=== PATIENT | female | born 1980 | race Caucasian/White ===

== ENCOUNTER 2023-03-11 22:37 | Inpatient (IN) | payer BC ==
[2023-03-12] MEDS ORDERED: VANCOMYCIN IV PER PHARMACY 1 EACH MISC MISCELLANE PRN (00:08)
[2023-03-12] MEDS ORDERED: NALOXONE 0.4 MG/ML 1 ML VIAL IV PRN (00:09)
--- NOTE | 2023-03-12 00:14 | ED ---
General Adult HPI - General Chief complaint: Skin/Abscess/Foreign Body Stated complaint: Cellulitis Infection Time Seen by Provider: 03/11/23 23:39 Source: patient Mode of arrival: ambulatory Limitations: no limitations - History of Present Illness Initial comments: Dictation was produced using [employer] dictation software. please excuse any grammatical, word or spelling errors. Chief Complaint: 43-year-old female presents emergency Department with left lower extremity cellulitis History of Present Illness: Is a 43-year-old female she has extensive history of lower extremity cellulitis. She has been taking cephalosporins. She is on day 3 of her symptoms are worsening. Patient has been hospitalized multiple occasions for cellulitis. Most recently she was admitted and placed on vancomycin and linezolid. Patient complaining of chills. She feels like her symptoms are getting worse. She is visiting from out of town. She is from [facility]. The ROS documented in this emergency department record has been reviewed and confirmed by me. Those systems with pertinent positive or negative responses have been documented in the HPI. All other systems are other negative and/or noncontributory. - Related Data Allergies Allergy/AdvReac Type Severity Reaction Status Date / Time No Known Allergies Allergy Verified 03/11/23 22:46 Review of Systems ROS Statement: Those systems with pertinent positive or pertinent negative responses have been documented in the HPI. ROS Other: All systems not noted in ROS Statement are negative. Past Medical History Past Medical History: Asthma History of Any Multi-Drug Resistant Organisms: None Reported Past Surgical History: Adenoidectomy, Section, Cholecystectomy, Orthopedic Surgery, Tonsillectomy Past Psychological History: Anxiety, Depression Smoking Status: Never smoker Past Alcohol Use History: None Reported Past Drug Use History: None Reported General Exam - General Exam Comments Initial Comments: PHYSICAL EXAM: General Impression: Alert and oriented x3, not in acute distress HEENT: Normocephalic atraumatic, extra-ocular movements intact, pupils equal and reactive to light bilaterally, mucous membranes moist. Cardiovascular: Heart regular rate and rhythm Chest: Able to complete full sentences, no retractions, no tachypnea Abdomen: abdomen soft, non-tender, non-distended, no organomegaly Musculoskeletal: Pulses present and equal in all extremities, no peripheral edema Motor: no focal deficits noted Neurological: CN II-XII grossly intact, no focal motor or sensory deficits noted Skin: Cellulitic changes to the left lower extremity, circumferential, erythematous and tenderness to palpation Psych: Normal affect and mood Limitations: no limitations Course Vital Signs 03/11/23 22:43 Temperature 98.1 F Pulse Rate 96 Respiratory 16 Rate Blood Pressure 129/88 O2 Sat by Pulse 96 Oximetry Medical Decision Making - Medical Decision Making Was pt. sent in by a medical professional or institution (, TRAVIS, CRUTCHING CONTRACTOR, urgent care, hospital, or halfway...) When possible be specific @ -No Did you speak to anyone other than the patient for history (EMS, parent, family, police, friend...)? What history was obtained from this source @ -No Did you review nursing and triage notes (agree or disagree)? Why? @ -I reviewed and agree with nursing and triage notes Were old charts reviewed (outside hosp., previous admission, EMS record, old EKG, old radiological studies, urgent care reports/EKG's, halfway records)? Report findings @ -No old charts were reviewed Differential Diagnosis (chest pain, altered mental status, abdominal pain women, abdominal pain men, vaginal bleeding, musculoskeletal, weakness, fever, dyspnea, syncope, headache, dizziness, GI bleed, back pain, seizure, CVA, palpatations, mental health)? @ -not applicable EKG interpreted by me (3pts min.). @ -None done X-rays interpreted by me (1pt min.). @ -None done CT interpreted by me (1pt min.). @ -None done U/S interpreted by me (1pt. min.). @ -None done What testing was considered but not performed or refused? (CT, X-rays, U/S, labs)? Why? @ -None What meds were considered but not given or refused? Why? @ -None Did you discuss the management of the patient with other professionals (professionals i.e. , TRAVIS, CRUTCHING CONTRACTOR, lab, RT, psych nurse, social staff worker, frame and scrap crusher, teacher, contracts officer, showcase maker)? Give summary @ -No Was smoking cessation discussed for >3mins.? @ -No Was critical care preformed (if so, how long)? @ -No Were there social determinants of health that impacted care today? How? (Homelessness, low income, unemployed, alcoholism, drug addiction, tra nsportation, low edu. Level, literacy, decrease access to med. care, long term, rehab)? @ -No Was there de-escalation of care discussed even if they declined (Discuss DNR or withdrawal of care, Hospice)? DNR status @ -No What co-morbidities impacted this encounter? (DM, HTN, Smoking, COPD, CAD, Cancer, CVA, ARF, Chemo, Hep., AIDS, mental health diagnosis, sleep apnea, morbid obesity)? @ -None Was patient admitted / discharged? Hospital course, mention meds given and route, prescriptions, significant lab abnormalities, going to OR and other pertinent info. @ -43-year-old female visiting from a town. She reports that she has complex history of cellulitis to her lower extremities requiring full inpatient admissions. Vital signs upon arrival are within acceptable limits. Patient is on day 3 of cephalosporin therapy with worsening symptoms. Laboratory evaluation obtained. Leukocytosis of 14.4, hypokalemia 3.0. Patient will be admitted started on vancomycin. Infectious disease consulted Undiagnosed new problem with uncertain prognosis? @ -No Drug Therapy requiring intensive monitoring for toxicity (Heparin, Nitro, Insulin, Cardizem)? @ -No Were any procedures done? @ -No Diagnosis/symptom? Acute, or Chronic, or Acute on Chronic? Uncomplicated (without systemic symptoms) or Complicated (systemic symptoms)? @ -Left lower extremity cellulitis, failed outpatient treatment Side effects of treatment? @ -No Exacerbation, Progression, or Severe Exacerbation? @ -No Poses a threat to life or bodily function? How? (Chest pain, [place], MA, pneumonia, PE, COPD, DKA, ARF, appy, cholecystitis, CVA, Diverticulitis, Homicidal, Suicidal, threat to staff... and all critical care pts) @ -yes - Lab Data Result diagrams: 03/12/23 00:24 03/12/23 00:24 Disposition Clinical Impression: Cellulitis of extremity Disposition: ADMITTED IP TO THIS HOSP Condition: Fair Decision Time: 00:14
[2023-03-12 00:44] LABS: Basophils % (A) 0 %; Eosinophils # (A) 0.3 k/uL (0-0.7); Eosinophils % (A) 2 %; HCT 43.1 % (34.0-46.0); HGB 14.9 gm/dL (11.4-16.0); Lymphocytes # (A) 2.1 k/uL (1.0-4.8); Lymphocytes % (A) 14 %; MCH 31.4 pg (25.0-35.0); MCHC 34.5 g/dL (31.0-37.0); MCV 90.8 fL (80.0-100.0); Mean Platelet Volume 9.6; Monocytes # (A) 1.2 k/uL (0-1.0); Monocytes % (A) 8 %; Neutrophils # (A) 10.6 k/uL (1.3-7.7); Neutrophils % (A) 74 %; Platelet Count 236 k/uL (150-450); RBC 4.75 m/uL (3.80-5.40); RDW 12.9 % (11.5-15.5); WBC 14.4 k/uL (3.8-10.6)
[2023-03-12 00:52] LABS: African American GFR (CKD) 86 (>60 ml/min/1.73 sqM); Anion Gap 11 mmol/L; Blood Urea Nitrogen 23 mg/dL (7-17); Calcium 9.5 mg/dL (8.4-10.2); Carbon Dioxide 28 mmol/L (22-30); Chloride 96 mmol/L (98-107); Glucose 122 mg/dL (74-99); Non-African American GFR(CKD) 74 (>60 ml/min/1.73 sqM); Sodium 135 mmol/L (137-145)
[2023-03-12] MEDS ORDERED: VANCOMYCIN 2,500 MG in SODIUM CHLORIDE 0.9% 500 ML 500 ML IVPB ONE (01:00)
[2023-03-12] MEDS: HYDROcodone/APAP 5-325MG 1 EACH TAB PO PRN ×2 (01:04→07:41)
[2023-03-12] MEDS: SODIUM CHLORIDE 0.9% 1,000 ML IV SCH ×2 (01:07→23:56)
[2023-03-12] MEDS ORDERED: POTASSIUM CHLORIDE ER 20 MEQ TAB.ER PO STA (01:10)
[2023-03-12] MEDS ORDERED: MORPHINE SULFATE 4 MG/ML SYRINGE IVP STA (01:16)
[2023-03-12] MEDS: HYDROmorphone 0.5 MG/0.5 ML SYRINGE IVP PRN ×5 (05:38→23:53)
[2023-03-12] MEDS ORDERED: ALBUTEROL NEBULIZED 2.5 MG/3 ML INHALATION PRN (09:29)
[2023-03-12] MEDS ORDERED: MELOXICAM 7.5 MG TAB PO PRN (09:29)
[2023-03-12] MEDS: PANTOPRAZOLE 40 MG TABLET PO SCH (09:51)
[2023-03-12] MEDS ORDERED: HYDROcodone/APAP 7.5-325MG 1 EACH TAB PO PRN (10:09)
[2023-03-12] MEDS ORDERED: KETOROLAC 15 MG/ML 1 ML VIAL IVP PRN (11:20)
[2023-03-12] MEDS ORDERED: KETOROLAC 15 MG/ML 1 ML VIAL IVP SCH (12:00)
[2023-03-12] MEDS: POTASSIUM CHLORIDE ER 20 MEQ TAB.ER PO SCH ×2 (13:44→16:29)
[2023-03-12] MEDS ORDERED: VANCOMYCIN 2,250 MG in SODIUM CHLORIDE 0.9% 500 ML 500 ML IVPB SCH (14:00)
[2023-03-12] MEDS: ceFAZolin 3 GM in SODIUM CHLORIDE 0.9% 100 ML IVPB SCH ×2 (16:29→23:47)
[2023-03-12] MEDS ORDERED: DEXTROSE 50% SYRINGE 50 ML IVP PRN ×2 (17:19)
--- NOTE | 2023-03-12 17:28 | P.HPIM ---
History of Present Illness H&P Date: 03/12/23 This is a 43 year old female with medical history of asthma, anxiety/depression and recurrent lower extremity cellulitis. Patient presents to the hospital with 3 day history of redness and swelling to the right lower extremity. Denied and fever or chills at home. There is no open wound, with the exception of a scab to the lateral aspect of the left knee which patient states she was bitten by a mosquito. Patient was started on oral cefdinir by her PCP down in [place] and has been taking for the last 3 days without improvement in symptoms. Recently flew in from [place] to visit family. Patient has had 3 episodes of cellulitis to the right lower extremity was recently hospitalized for this 4 weeks ago. She was initially treated with IV linezolid but developed a reaction and this was stopped. She was given cephalexin for 5 days outpatient. Usually does not have any lower extremity edema unless there is cellulitis. She does take hydrochlorothiazide daily and is noted to have low potassium at 3.0, she states this is normal for her. Has also reported a cough for the last 3 days. No sinus congestion noted. Initial blood work shows elevated white count of 14.4, Sodium 135, potassium 3.0, BUN 23, creatinine 0.944, glucose 122. Patient is admitted to the hospital with LE cellulitis and IV antibiotic therapy, ID has been consulted. REVIEW OF SYSTEMS: CONSTITUTIONAL: No fever, no malaise, no fatigue. HEENT: No recent visual problems or hearing problems. Denied any sore throat. CARDIOVASCULAR: No chest pain, orthopnea, PND, no palpitations, no syncope. PULMONARY: No shortness of breath, Reports nonproductive congested cough, no hemoptysis. GASTROINTESTINAL: No diarrhea, no nausea, no vomiting, no abdominal pain. NEUROLOGICAL: No headaches, no weakness, no numbness. HEMATOLOGICAL: Denies any bleeding or petechiae. GENITOURINARY: Denies any burning micturition, frequency, or urgency. MUSCULOSKELETAL/RHEUMATOLOGICAL: Reports redness and swelling of the left lower extremity. ENDOCRINE: Denies any polyuria or polydipsia. The rest of the 14-point review of systems is negative. PHYSICAL EXAMINATION: GENERAL: The patient is alert and oriented x3, not in any acute distress. Well developed, well nourished. HEENT: Pupils are round and equally reacting to light. EOMI. No scleral icterus. No conjunctival pallor. Normocephalic, atraumatic. No pharyngeal erythema. No thyromegaly. CARDIOVASCULAR: S1 and S2 present. No murmurs, rubs, or gallops. PULMONARY: Chest is clear to auscultation, no wheezing or crackles. ABDOMEN: Soft, nontender, nondistended, normoactive bowel sounds. No palpable organomegaly. MUSCULOSKELETAL: No joint swelling or deformity. EXTREMITIES: Erythema and pitting edema of the right lower extremity to just below the left knee. No open draining wounds. NEUROLOGICAL: Gross neurological examination did not reveal any focal deficits. SKIN: No rashes. Assessment Left lower extremity cellulitis likely due to chronic lower extremity edema. No prior history of MRSA reported. Leukocytosis secondary to above Chronic peripheral edema maintained on hydrochlorothiazide Hyponatremia due to diuresis Hypokalemia due to diuresis and medication effect from the HCTZ which is currently on hold, lasix would be a better option to take as needed this was discussed with the patient Morbid obesity on wegovy weekly injections for weight loss Hyperglycemia Hx of asthma with mild acute exacerbation patient has had cough ongoing last 3 days GI prophylaxis DVT prophylaxis Full Code Plan Continue IV antibiotics; ID consultation Blood culture pending. Replace potassium and repeat level in AM Hold Hctz and recommending to discharge patient on oral lasix as needed with potassium supplementation on discharge Check a hemoglobin A1C. Continue with albuterol as needed and supportive care for the cough. The impression and plan of care has been dictated by Deena Tinoco Nurse Practitioner as directed. Dr. Elvis MD I have performed a history and physical examination and medical decision making of this patient, discussed the same with the dictator, and agree with the dictators assessment and plan as written, documented as a scribe. Based on total visit time, I have performed more than 50% of this visit. Past Medical History Past Medical History: Asthma History of Any Multi-Drug Resistant Organisms: None Reported Past Surgical History: Adenoidectomy, Section, Cholecystectomy, Orthopedic Surgery, Tonsillectomy Past Psychological History: Anxiety, Depression Smoking Status: Never smoker Past Alcohol Use History: None Reported Past Drug Use History: None Reported Medications and Allergies Home Medications Medication Instructions Recorded Confirmed Type Albuterol Sulfate [Albuterol 1 - 2 puff PO RT-Q4H PRN 03/12/23 03/12/23 History Sulfate Hfa] Cefdinir [Omnicef] 300 mg PO Q12HR 03/12/23 03/12/23 History Citalopram Hydrobromide [CeleXA] 40 mg PO HS 03/12/23 03/12/23 History Meloxicam [Mobic] 15 mg PO DAILY PRN 03/12/23 03/12/23 History Pantoprazole Sodium [Protonix] 40 mg PO HS 03/12/23 03/12/23 History Semaglutide [Wegovy] 1.7 mg SQ WE 03/12/23 03/12/23 History hydroCHLOROthiazide 12.5 mg PO HS 03/12/23 03/12/23 History Allergies Allergy/AdvReac Type Severity Reaction Status Date / Time No Known Allergies Allergy Verified 03/12/23 06:52 Physical Exam Vitals: Vital Signs Temp Pulse Resp BP Pulse Ox 03/12/23 09:03 85 18 127/82 94 L 03/12/23 07:36 97.8 F 63 18 105/81 96 03/12/23 06:17 77 16 113/72 94 L 03/12/23 01:48 83 18 116/79 98 03/11/23 22:43 98.1 F 96 16 129/88 96 Intake and Output 03/11/23 03/12/23 03/12/23 22:59 06:59 14:59 Other: Weight 149.685 kg Results CBC & Chem 7: 03/12/23 00:24 03/12/23 09:44 Labs: Abnormal Lab Results - Last 24 Hours (Table) 03/12/23 03/12/23 Range/Units 00:24 00:24 WBC 14.4 H (3.8-10.6) k/uL Neutrophils # 10.6 H (1.3-7.7) k/uL Monocytes # 1.2 H (0-1.0) k/uL Sodium 135 L (137-145) mmol/L Potassium 3.0 L (3.5-5.1) mmol/L Chloride 96 L (98-107) mmol/L BUN 23 H (7-17) mg/dL Glucose 122 H (74-99) mg/dL Assessment and Plan Time with Patient: Less than 30
[2023-03-12 17:59] LABS: Glucose,Whole Blood 129 mg/dL (70-110)
[2023-03-12] MEDS: INSULIN ASPART (NovoLOG) 100 UNIT/ML VIAL SQ SCH ×2 (18:03→20:46)
--- NOTE | 2023-03-12 20:11 | US ---
EXAMINATION TYPE: US venous doppler duplex LE LT DATE OF EXAM: 03/12/2023 5:18 PM COMPARISON: NONE CLINICAL INDICATION: Female, 43 years old with history of LE redness and swelling; Left calf cellulit is. Hx of cellulitis. No hx of DVT. Not on blood thinners SIDE PERFORMED: Left TECHNIQUE: The lower extremity deep venous system is examined utilizing real time linear array sonog ela with graded compression, doppler sonography and color-flow sonography. VESSELS IMAGED: Common Femoral Vein Deep Femoral Vein Greater Saphenous Vein * Femoral Vein Popliteal Vein Small Saphenous Vein * Proximal Calf Veins (* superficial vessels) Left Leg: No evidence for DVT IMPRESSION: 1. Left lower extremity ultrasound negative for deep venous thrombosis.
[2023-03-12 20:44] LABS: Glucose,Whole Blood 119 mg/dL (70-110)
[2023-03-12] MEDS ORDERED: CITALOPRAM HYDROBROMIDE 20 MG TAB PO SCH (21:00)
--- NOTE | 2023-03-12 21:20 | P.CONS ---
History of Present Illness - Reason for Consult Consult date: 03/12/23 - History of Present Illness Patient is a 43-year-old female with a past medical history significant for morbid obesity did have a previous history of right lower extremity cellulitis asthma anxiety depression presenting to the hospital with worsening swelling and redness to the left lower extremity in this patient symptom has been going on for the last 3 days before presentation to the hospital, patient denies any history of any trauma patient complaining of diffuse swelling and redness to the left lower extremity with associated pain is mostly dull aching to sharp 5-6 out of 10 and no radiation patient did not have any open wound no drainage on arrival to the ER the patient was afebrile and no fever has been found subsequently patient did have white count of 14.4 with a left shift creatinine 0.94, patient was started on vancomycin admitted to hospital infectious disease was consulted for further management of antibiotic therapy Past Medical History Past Medical History: Asthma History of Any Multi-Drug Resistant Organisms: None Reported Past Surgical History: Adenoidectomy, Section, Cholecystectomy, Orthopedic Surgery, Tonsillectomy Past Psychological History: Anxiety, Depression Smoking Status: Never smoker Past Alcohol Use History: None Reported Past Drug Use History: None Reported Medications and Allergies Home Medications Medication Instructions Recorded Confirmed Type Albuterol Sulfate [Albuterol 1 - 2 puff PO RT-Q4H PRN 03/12/23 03/12/23 History Sulfate Hfa] Cefdinir [Omnicef] 300 mg PO Q12HR 03/12/23 03/12/23 History Citalopram Hydrobromide [CeleXA] 40 mg PO HS 03/12/23 03/12/23 History Meloxicam [Mobic] 15 mg PO DAILY PRN 03/12/23 03/12/23 History Pantoprazole Sodium [Protonix] 40 mg PO HS 03/12/23 03/12/23 History Semaglutide [Wegovy] 1.7 mg SQ WE 03/12/23 03/12/23 History hydroCHLOROthiazide 12.5 mg PO HS 03/12/23 03/12/23 History Allergies Allergy/AdvReac Type Severity Reaction Status Date / Time No Known Allergies Allergy Verified 03/12/23 06:52 Physical Exam Vitals: Vital Signs Temp Pulse Resp BP Pulse Ox 03/12/23 09:03 85 18 127/82 94 L 03/12/23 07:36 97.8 F 63 18 105/81 96 03/12/23 06:17 77 16 113/72 94 L 03/12/23 01:48 83 18 116/79 98 03/11/23 22:43 98.1 F 96 16 129/88 96 Intake and Output 03/11/23 03/12/23 03/12/23 22:59 06:59 14:59 Other: Weight 149.685 kg Results CBC & Chem 7: 03/12/23 00:24 03/12/23 09:44 Labs: Abnormal Lab Results - Last 24 Hours (Table) 03/12/23 03/12/23 03/12/23 Range/Units 00:24 00:24 09:44 WBC 14.4 H (3.8-10.6) k/uL Neutrophils # 10.6 H (1.3-7.7) k/uL Monocytes # 1.2 H (0-1.0) k/uL Sodium 135 L (137-145) mmol/L Potassium 3.0 L 3.0 L (3.5-5.1) mmol/L Chloride 96 L (98-107) mmol/L BUN 23 H (7-17) mg/dL Glucose 122 H (74-99) mg/dL Assessment and Plan Plan: 1patient with acute left lower extremity cellulitis in this patient with diffuse swelling and redness likely streptococcal disease clinically doubt MRSA or gram-negative infection. 2marked the area of the redness. 3discontinue vancomycin. 4cefazolin 3 grams every 8 hours We will follow on clinical condition and cultures to further adjust medication if needed Thank you for this consultation we will follow the patient along with you Dictation was produced using [employer] dictation software. please excuse any grammatical, word or spelling errors. Time with Patient: Greater than 30
[2023-03-13] MEDS: PANTOPRAZOLE 40 MG TABLET PO SCH (05:30)
[2023-03-13] MEDS: INSULIN ASPART (NovoLOG) 100 UNIT/ML VIAL SQ SCH (06:31)
[2023-03-13 06:36] LABS: African American GFR (CKD) 89 (>60 ml/min/1.73 sqM); Non-African American GFR(CKD) 77 (>60 ml/min/1.73 sqM)
[2023-03-13] MEDS: ceFAZolin 3 GM in SODIUM CHLORIDE 0.9% 100 ML IVPB SCH ×2 (08:24→16:05)
[2023-03-13 09:13] LABS: African American GFR (CKD) 85 (>60 ml/min/1.73 sqM); Anion Gap 7 mmol/L; Blood Urea Nitrogen 23 mg/dL (7-17); Calcium 9.4 mg/dL (8.4-10.2); Carbon Dioxide 30 mmol/L (22-30); Chloride 100 mmol/L (98-107); Glucose 95 mg/dL (74-99); Magnesium 1.8 mg/dL (1.6-2.3); Non-African American GFR(CKD) 74 (>60 ml/min/1.73 sqM); Potassium 3.5 mmol/L (3.5-5.1); Sodium 137 mmol/L (137-145)
[2023-03-13] MEDS ORDERED: POTASSIUM CHLORIDE ER 20 MEQ TAB.ER PO STA (09:43)
[2023-03-13] MEDS ORDERED: MAGNESIUM OXIDE 400 MG TAB PO STA (09:43)
[2023-03-13] MEDS ORDERED: FUROSEMIDE 10 MG/ML 2 ML VIAL IV ONE (11:30)
[2023-03-13] MEDS ORDERED: CLINDAMYCIN 900 MG in DEXTROSE 5% IN WATER 50 ML IVPB STA ×2 (11:56)
--- NOTE | 2023-03-13 15:24 | P.PN ---
Subjective Progress Note Date: 03/13/23 Principal diagnosis: Left leg cellulitis Patient is a 43-year-old female with a past medical history significant for morbid obesity did have a previous history of right lower extremity cellulitis asthma anxiety depression presenting to the hospital with worsening swelling and redness to the left lower extremity , patient did have extensive left lower extremity cellulitis and Doppler was negative for DVT. On today's evaluation and that is 03/13/2023, the patient is afebrile, the patient is breathing comfortably , the patient denies chest pain and no significant cough, the patient denies nausea and vomiting no abdominal pain and no diarrhea, patient left lower extremity swelling redness has improved. Patient did have a creatinine of 0.95CBC was done today, blood cultures so far pending Objective - Vital Signs Vital signs: Vital Signs Temp 98.2 F 03/13/23 07:00 Pulse 90 03/13/23 07:00 Resp 16 03/13/23 07:00 BP 113/72 03/13/23 07:00 Pulse Ox 96 03/13/23 07:00 FiO2 Intake & Output 03/12/23 03/13/23 03/13/23 18:59 06:59 18:59 Weight 149.685 kg Other: # Voids 1 2 - Exam GENERAL DESCRIPTION: An elderly male lying in bed in no distress RESPIRATORY SYSTEM: Unlabored breathing , decreased breath sounds at bases HEART: S1 S2 regular rate and rhythm , ABDOMEN: Soft , no tenderness EXTREMITIES: Left leg swelling redness slightly decreased - Labs CBC & Chem 7: 03/12/23 00:24 03/13/23 05:30 Labs: Abnormal Lab Results - Last 24 Hours (Table) 03/12/23 03/12/23 03/13/23 Range/Units 17:56 20:43 05:30 BUN 23 H (7-17) mg/dL POC Glucose (mg/dL) 129 H 119 H (70-110) mg/dL Assessment and Plan (1) Left leg cellulitis Current Visit: Yes Status: Acute Code(s): L03.116 - CELLULITIS OF LEFT LOWER LIMB SNOMED Code(s): 003386437 Plan: 1patient with acute left lower extremity cellulitis in this patient with diffuse swelling and redness likely streptococcal disease clinically doubt MRSA or gram-negative infection. 2patient did have some improvement to the left lower extremity cellulitis she has been advised to stay in the hospital for another 24-48 hours for IV antibiotics however the patient is refusing saying she has to go to attend her aunt tomorrow morning we will give her a dose of clindamycin 900 mg 1 now she received her 4 PM dose of cefazolin afterwards may let her go home with instruction to come back if any worsening redness before her flight back home on Friday patient be given a prescription for Keflex 500 mg by mouth every 6 hours for 10 days this has been discussed in detail with the [facility]HO[facility] SEWER for admitting team Dictation was produced using [employer] dictation software. please excuse any grammatical, word or spelling errors. Time with Patient: Less than 30
[2023-03-13 15:49] VITALS: TEMP 98.2
[2023-03-13 16:35] VITALS: BP 138/85; PULSE 88; RESP 14
== END 2023-03-13 17:11 | disposition home or self-care (01) | DRG 603 ==
LOC: EC 22:37 → 6NMEDSUR 03-12 00:09 → OBSVTOIN 03-13 11:30
PROVIDERS: ADMIT Hospitalist; ATTEND Hospitalist
DX: L03.116 Cellulitis of left lower limb (principal); E87.1 Hypo-osmolality and hyponatremia; Z68.43 Body mass index [BMI] 50.0-59.9, adult; J45.901 Unspecified asthma with (acute) exacerbation; T50.2X5A Adverse effect of carbonic-anhydrase inhibitors, benzothiadiazides and other diuretics, initial encounter; Z79.1 Long term (current) use of non-steroidal anti-inflammatories (NSAID); E66.01 Morbid (severe) obesity due to excess calories; F41.9 Anxiety disorder, unspecified; B95.5 Unspecified streptococcus as the cause of diseases classified elsewhere; J45.909 Unspecified asthma, uncomplicated; F32.A Depression, unspecified; E87.6 Hypokalemia; W57.XXXA Bitten or stung by nonvenomous insect and other nonvenomous arthropods, initial encounter; X58.XXXA Exposure to other specified factors, initial encounter; Z90.49 Acquired absence of other specified parts of digestive tract
CPT/HCPCS: 80048; 82565; 83036; 83605; 83735; 84132; 85025; 87040; 94640; 96365; 96366; 96375; 96376; 99285